=== PATIENT | female | born 1975 | race American Indian/Alaskan Native ===

== ENCOUNTER 2022-02-14 10:32 | Emergency (ER) | payer SELFPAY ==
--- NOTE | 2022-02-14 10:47 | Emergency Department Report ---
ED Altered Mental Status HPI - General Stated Complaint: STROKE Time Seen by Provider: 02/14/22 10:36 Source: EMS Mode of arrival: Stretcher Limitations: Altered Mental Status - History of Present Illness MD Complaint: altered mental status, confusion -: Sudden Severity: moderate Consistency of Symptoms: waxing and waning Context: seizure disorder Associated Symptoms: denies other symptoms - Related Data Allergies Allergy/AdvReac Type Severity Reaction Status Date / Time Penicillins Allergy Rash Verified 02/14/22 13:09 ED Review of Systems ROS: Stated complaint: STROKE Other details as noted in HPI Constitutional: see HPI ENT: as per HPI Respiratory: no symptoms reported Cardiovascular: as per HPI Endocrine: no symptoms reported Gastrointestinal: as per HPI Genitourinary: as per HPI Musculoskeletal: as per HPI Neurological: as per HPI Psychiatric: as per HPI ED Past Medical Hx - Past Medical History Previous Medical History?: Yes Hx Seizures: Yes ED Physical Exam - General Limitations: Altered Mental Status General appearance: alert, in no apparent distress - Head Head exam: Present: atraumatic, normocephalic - Eye Eye exam: Present: normal appearance, PERRL - ENT ENT exam: Present: normal exam - Neck Neck exam: Present: normal inspection - Respiratory Respiratory exam: Present: normal lung sounds bilaterally - Cardiovascular Cardiovascular Exam: Present: regular rate, normal rhythm, normal heart sounds - GI/Abdominal GI/Abdominal exam: Present: soft. Absent: distended, tenderness - Extremities Exam Extremities exam: Present: normal inspection, full ROM - Neurological Exam Neurological exam: Present: alert, altered, CN II-XII intact, reflexes normal. Absent: motor sensory deficit - Psychiatric Psychiatric exam: Present: flat affect - Skin Skin exam: Present: warm, dry ED Course Vital Signs 02/14/22 02/14/22 13:06 15:16 Pulse Rate 107 H 104 H Respiratory 20 15 Rate Blood Pressure 182/100 184/94 [Right] O2 Sat by Pulse 99 99 Oximetry - Reevaluation(s) Reevaluation #1: 02/14/22 15:09 Patient awake and alertx3. Patient family is here and patient recognizes he has called family. Patient vital signs are stable - Lab Data Result diagrams: 02/14/22 11:21 Lab Results 02/14/22 02/14/22 02/14/22 Range/Units 11:21 11:21 Unknown Sodium 136 L (137-145) mmol/L Potassium 4.2 (3.6-5.0) mmol/L Chloride 98.7 (98-107) mmol/L Carbon Dioxide 15 L (22-30) mmol/L Anion Gap 27 mmol/L BUN 11 (7-17) mg/dL Creatinine 1.0 (0.6-1.2) mg/dL Estimated GFR 59 ml/min BUN/Creatinine Ratio 11 % Glucose 100 (65-100) mg/dL Calcium 8.9 (8.4-10.2) mg/dL Total Bilirubin 0.40 (0.1-1.2) mg/dL AST 20 (5-40) units/L ALT 15 (7-56) units/L Alkaline Phosphatase 72 (35-129) units/L Total Protein 7.3 (6.3-8.2) g/dL Albumin 4.5 (3.9-5) g/dL Albumin/Globulin Ratio 1.6 % Urine Opiates Screen Negative Urine Methadone Screen Negative Ur Barbiturates Screen Negative Ur Phencyclidine Scrn Negative Ur Amphetamines Screen Negative U Benzodiazepines Scrn Negative Urine Cocaine Screen Negative U Marijuana (THC) Screen Negative Drugs of Abuse Note Disclamer Plasma/Serum Alcohol < 0.01 (0-0.07) % Critical care attestation.: If time is entered above; I have spent that time in minutes in the direct care of this critically ill patient, excluding procedure time. ED Disposition Clinical Impression: Seizure Disposition: 01 HOME / SELF CARE / HOMELESS Is pt being admited?: No Does the pt Need Aspirin: No Condition: Stable Instructions: Epilepsy, Buqi-cl-Iwko, Seizure, Adult, Gona-zv-Funa Additional Instructions: Must take seizure medicine when you get home
--- NOTE | 2022-02-14 11:09 | Consultation ---
History of Present Illness History of present illness: [facility] Consult Note # Demographics Consult Type: Acute Stroke Level 1 (0-4.5 hrs) Patient Location: Emergency Room First Name: Samara Last Name: Mary Date of : 1975 Age: 47 Gender: Female Facility: [facility] Time of Initial Page (): 02/14/2022, 10:30 Time of Return Call ( Time): 02/14/2022, 10:31 # HPI History: 47F with epilepsy, multiple sclerosis presents with seizure. Per staff, seized x1 minute. With EMS, started to seize again with arms posturing and focal twitching in the face. Has remained post-ictal since. Initial BP 230/140 -> 190/100. Fingerstick 130. Per patient, she has missed multiple medications recently. # Scores Time of exam and NIHSS (): 02/14/2022, 11:03 Level of Consciousness 1a: [0] = Alert; keenly responsive LOC Questions 1b: [0] = Answers both questions correctly LOC Commands 1c: [0] = Performs both tasks correctly Best Gaze 2: [0] = Normal Visual 3: [0] = No visual loss Facial Palsy 4: [0] = Normal symmetrical movements Motor Arm Left 5a: [0] = No drift Motor Arm Right 5b: [0] = No drift Motor Leg Left 6a: [0] = No drift Motor Leg Right 6b: [0] = No drift Limb Ataxia 7: [0] = Absent Sensory 8: [0] = Normal Best Language 9: [0] = No aphasia Dysarthria 10: [0] = Normal Extinction and Inattention 11: [0] = No abnormality NIHSS Total: 0 # Data Time Head CT personally read by me ( Time): 02/14/2022, 10:[address]: no bleed preliminarily reviewed by me, please refer to radiology read for official reading # Assessment Impression: Seizure # Plan Thrombolytic/Intervention: NOT IV Thrombolysis or IA Intervention candidate Thrombolytic/Intraarterial Exclusion: IV thrombolytic and IA intervention considered but not recommended as this patient's symptoms are not clinically consistent with an assumed diagnosis of stroke Medication: Levetiracetam 2g x1 now, then restart home meds Other: If patient has any neurological deterioration please call me back immediately I have discussed my recommendations with the referring provider Additional Recommendations: Needs counseling on any issues with anti-seizure medications so we can help her not miss further doses Disposition: observation # Logistics Telemedicine: Interactive 2 way audio and visual telecommunication technology was utilized during this visit Electronically signed at 02/14/2022 11:09 (Eastern Time) by Moris Marte MD Medications and Allergies Allergies Allergy/AdvReac Type Severity Reaction Status Date / Time No Known Allergies Allergy Unverified 02/14/22 10:58
--- NOTE | 2022-02-14 11:16 | Cat Scan Report ---
CT head/brain wo con INDICATION / CLINICAL INFORMATION: 47 years Female; martinez. TECHNIQUE: Routine CT head without contrast. All CT scans at this location are performed using CT dos e reduction for ALARA by means of automated exposure control. Motion artifact present. COMPARISON: None. FINDINGS: BRAIN / INTRACRANIAL CONTENTS: There may be small arachnoid cysts along the postcentral and/or centra l sulci, bilaterally, left slightly greater than right. These findings are of no clinical significanc e. Otherwise, no acute hemorrhage, mass effect, midline shift, hydrocephalus, or acute, large territori al infarct. No signs of significant atrophy or chronic infarct. No significant white matter abnormali ty seen. CRANIOCERVICAL JUNCTION: No significant abnormality. ORBITS: No significant abnormality of visualized orbits. SINUSES / MASTOIDS: Visualized paranasal sinuses and mastoid air cells are essentially clear. ADDITIONAL FINDINGS: None. IMPRESSION: 1. No focal intra-axial mass, hemorrhage, hydrocephalus, or acute, large territorial infarct. Signer Name: Saud Barnes MD, III Signed: 02/14/2022 11:12 AM Workstation Name: [id number]
--- NOTE | 2022-02-14 11:30 | XRay Report ---
CHEST 1 VIEW 02/14/2022 10:25 AM INDICATION / CLINICAL INFORMATION: sob. COMPARISON: None available. FINDINGS: SUPPORT DEVICES: None. HEART / MEDIASTINUM: No significant abnormality. LUNGS / PLEURA: No significant pulmonary or pleural abnormality. No pneumothorax. ADDITIONAL FINDINGS: No significant additional findings. IMPRESSION: 1. No acute findings. Signer Name: Fox Guadarrama Jr, MD Signed: 02/14/2022 11:26 AM Workstation Name: [id number]
--- NOTE | 2022-02-14 11:54 | Cat Scan Report ---
CTA NECK WITH CONTRAST 02/14/2022 INDICATION / CLINICAL INFORMATION: cva. COMPARISON: None. TECHNIQUE: Routine CTA of the neck is performed. 3-D/MIP reformats were postprocessed. Percentage st enosis is determined by direct quantitative measurements of diseased internal carotid artery diameter compared with normal distal internal carotid artery reference segments or by criteria similar to SANTIAGO CET where applicable. All CT scans at this location are performed using CT dose reduction for ALARA b y means of automated exposure control. CONTRAST: 100 ml of Omnipaque 350 FINDINGS: Carotid bifurcations: At the right bifurcation, there is no evidence of significant abnormality. At the left bifurcation, there is no evidence of acute abnormality. Carotid arteries: No significant abnormality. Cervical vertebral arteries: No significant abnormality. Aortic arch: No significant abnormality. IMPRESSION: No significant abnormality. Signer Name: Estuardo Hinojosa MD Signed: 02/14/2022 11:49 AM Workstation Name: [email or web address]
--- NOTE | 2022-02-14 11:58 | Cat Scan Report ---
CTA HEAD WITH CONTRAST 02/14/2022 HISTORY: cva. COMPARISON: None. TECHNIQUE: All CT scans at this location are performed using CT dose reduction for ALARA by means of automated exposure control.. 3-D/MIP reformats postprocessed. Percentage stenosis is determined by d irect quantitative measurements of diseased internal carotid artery diameter compared with normal dis jordy internal carotid artery reference segments or by criteria similar to NASCET where applicable. CONTRAST: 100 ml of Omnipaque 350 FINDINGS: CTA HEAD: Intracranial vertebral arteries: No significant abnormality. Basilar artery: No significant abnormality. Posterior cerebral arteries: No significant abnormality. Intracranial internal carotid arteries: No significant abnormality. Anterior cerebral arteries: No significant abnormality. Middle cerebral arteries: There are some subtle irregularity along the course of the M1 segments bila terally, likely due to intracranial atherosclerotic change, without evidence of vessel occlusion. Dural venous sinuses:Not optimally opacified. No significant abnormality. Additional findings: None. IMPRESSION: 1. Mild atherosclerotic irregularity associated with middle cerebral arteries, without evidence of ve ssel occlusion. Signer Name: Estuardo Hinojosa MD Signed: 02/14/2022 11:53 AM Workstation Name: [email or web address]
[2022-02-14 12:11] LABS: Amphetamine Screen,Urine Negative; Benzodiazepines Screen,Urine Negative; Cannabinoid Screen,Urine Negative; Cocaine Screen,Urine Negative; Methadone Screen,Urine Negative; Opiate Screen,Urine Negative
[2022-02-14 12:56] LABS: Albumin 4.5 g/dL (3.9-5); Calcium 8.9 mg/dL (8.4-10.2)
[2022-02-14 16:00] VITALS: BP 181/94
--- NOTE | 2022-02-15 09:31 | Electrocardiograph Report ---
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
== END 2022-02-14 16:00 | disposition home or self-care (01) ==
LOC: ED 10:32
DX: R56.9 Unspecified convulsions (principal); R41.82 Altered mental status, unspecified; Z88.0 Allergy status to penicillin; Z79.899 Other long term (current) drug therapy
CPT/HCPCS: 36415; 70450; 70496; 70498; 71045; 80053; 80307; 93005; 99285; Q9967; 80320; G0480